=== PATIENT | male | born 1955 | race Caucasian/White ===

== ENCOUNTER 2018-02-02 05:38 | Day surgery (SDC) | payer OTHER ==
[~2018-02-02] VITALS: Ht 165.1 cm; Wt 60.0 kg
[2018-02-02] MEDS ORDERED: LIDOCAINE 2% 30 ML JELLY TP ONE (05:39)
[2018-02-02] MEDS ORDERED: ALBUTEROL SULFATE 2.5 MG/0.5 ML NEB SOLUTION NEB ONE (05:39)
[2018-02-02] MEDS ORDERED: BENZOCAINE 20% 50 MCG/SPRAY 57 GM TP ONE (05:39)
[2018-02-02] MEDS ORDERED: SODIUM CHLORIDE 0.9% 1,000 ML IV ONE ×2 (05:58→07:00)
[2018-02-02] MEDS ORDERED: AMAN100C12 PO (06:14)
[2018-02-02] MEDS ORDERED: CARB-101 PO (06:14)
[2018-02-02] MEDS ORDERED: TAMS0.4C32 PO (06:14)
[2018-02-02] MEDS ORDERED: TRAM50TA4 PO (06:14)
[2018-02-02] MEDS ORDERED: ACET-784 PO (06:14)
[2018-02-02] MEDS ORDERED: LORA0.5T2 PO (06:14)
[2018-02-02] MEDS ORDERED: CARB-104 PO (06:14)
[2018-02-02] MEDS ORDERED: MIDAZOLAM HCL 2 MG/2 ML VIAL ONE (08:23)
[2018-02-02] MEDS ORDERED: FentaNYL CITRATE-PF 100 MCG/2 ML VIAL ONE (08:24)
[2018-02-02] MEDS ORDERED: MethylPREDNISolone SOD SUCC 125 MG/2 ML VIAL IVP ONE (08:45)
[2018-02-02] MEDS ORDERED: MethylPREDNISolone SOD SUCC 125 MG/2 ML VIAL ONE (08:54)
[2018-02-02] MEDS ORDERED: OXYGEN THERAPY IH SCH (20:00)
== END 2018-02-02 10:40 | disposition home or self-care (01) ==
LOC: SURGERY 05:38
PROVIDERS: ATTEND Internal Medicine Critical Care Medicine
DX: J38.4 Edema of larynx (principal); B37.0 Candidal stomatitis; J84.111 Idiopathic interstitial pneumonia, not otherwise specified; J98.09 Other diseases of bronchus, not elsewhere classified; Z87.01 Personal history of pneumonia (recurrent); Z86.73 Personal history of transient ischemic attack (TIA), and cerebral infarction without residual deficits; Z79.891 Long term (current) use of opiate analgesic; Z98.890 Other specified postprocedural states; Z79.899 Other long term (current) drug therapy
CPT/HCPCS: 31623; 31624; 71045; 87015; 87070; 87205; 87206; 87220; 88108; 88312; J2250; J2930; J3010; J7030